=== PATIENT | female | born 2000 | race Caucasian/White ===

== ENCOUNTER 2025-03-28 20:36 | Emergency (ER) | payer SELFPAY ==
[2025-03-28 21:14] LABS: #Basophils 0.1 thou/uL (0.0-0.2); #Eosinophils 0.2 thou/uL (0.0-0.7); #Lymphocytes 2.0 thou/uL (1.20-3.40); #Monocytes 0.4 thou/uL (0.11-0.59); #Neutrophils 5.6 thou/uL (1.40-6.50); %Basophils 0.9 % (0.0-1.0); %Eosinophils 1.9 % (0.0-10.0); %Lymphocytes 24.6 % (21.0-51.0); %Monocytes 5.0 % (0.0-10.0); %Neutrophils 67.6 % (42.0-75.0); Hematocrit 44.3 % (36.0-47.0); Hemoglobin 14.2 g/dL (12.0-16.0); Mean Corpuscular Hemoglobin 29.3 pg (27.0-31.0); Mean Corpuscular Volume 91.6 fl (78.0-98.0); Platelet Count 194 10x3/uL (130-400); Red Blood Cell (RBC) Count 4.83 mill/uL (4.20-5.40); White Blood Cell (WBC) Count 8.3 10x3/uL (4.8-10.8)
[2025-03-28] MEDS ORDERED: diphenhydrAMINE 50 MG/ML VIAL ONE (21:15)
[2025-03-28] MEDS ORDERED: Famotidine/PF 20 mg/2ml Vial ONE (21:16)
[2025-03-28 21:33] LABS: ALT (SGPT) 12 U/L (Less than 34); AST (SGOT) 21 U/L (11-34); Albumin 4.5 g/dL (3.1-4.5); Alkaline Phosphatase 80 U/L (40-110); Anion Gap 16 mmol/L (10-20); BUN (Urea Nitrogen) 13 mg/dL (7.0-18.7); Bilirubin, Total 0.3 mg/dL (0.3-1.2); Calc. Creatinine Clearance 0 mL/min (70-130); Calcium 9.3 mg/dL (7.8-10.44); Carbon Dioxide 23 mmol/L (22-29); Chloride 106 mmol/L (98-107); Globulin 3.3 g/dL (2.4-3.5); Glucose 92 mg/dL (70-105); Potassium 4.0 mmol/L (3.5-5.1); Sodium 141 mmol/L (136-145)
[2025-03-28 21:34] LABS: Troponin I 0.011 ng/mL (< 0.028)
== END 2025-03-28 22:44 | disposition home or self-care (01) ==
LOC: BURERS 20:36
DX: T78.40XA Allergy, unspecified, initial encounter (principal)
CPT/HCPCS: 71045; 80053; 83880; 84484; 85025; 93005; 96374; 96375; J1200; J1308; J2919

== ENCOUNTER 2025-04-03 12:31 | Emergency (ER) | payer SELFPAY ==
[2025-04-03] MEDS ORDERED: Dicyclomine 20 MG TAB ONE (13:02)
[2025-04-03] MEDS ORDERED: Ondansetron PF 4 MG/2 ML Vial ONE (13:02)
[2025-04-03 13:03] LABS: #Basophils 0.1 thou/uL (0.0-0.2); #Eosinophils 0.2 thou/uL (0.0-0.7); #Lymphocytes 2.7 thou/uL (1.20-3.40); #Monocytes 0.5 thou/uL (0.11-0.59); #Neutrophils 6.4 thou/uL (1.40-6.50); %Basophils 1.2 % (0.0-1.0); %Eosinophils 2.2 % (0.0-10.0); %Lymphocytes 27.2 % (21.0-51.0); %Monocytes 4.6 % (0.0-10.0); %Neutrophils 64.8 % (42.0-75.0); Hematocrit 45.9 % (36.0-47.0); Hemoglobin 14.8 g/dL (12.0-16.0); Mean Corpuscular Hemoglobin 29.1 pg (27.0-31.0); Mean Corpuscular Volume 90.0 fl (78.0-98.0); Platelet Count 223 10x3/uL (130-400); Red Blood Cell (RBC) Count 5.10 mill/uL (4.20-5.40); White Blood Cell (WBC) Count 9.8 10x3/uL (4.8-10.8)
[2025-04-03 13:08] LABS: Glucose, Urine (Dipstick) Negative (Negative); Leukocyte Small (Negative); Protein, Urine (Dipstick) Trace mg/dL (Neg-Trace); Specific Gravity, Urine 1.020 (1.005-1.030)
[2025-04-03 13:16] LABS: Bacteria/HPF Rare-Few HPF (None Seen); CAUTI Indications for Culture Dysuria,urgency,freq; Pregnancy Test - Urine (BHCG) Negative (Negative); Pregu Control Background? CLEAR/WHITE (CLR/WHITE); Pregu Control Bar Appear? YES (CONTROL BAR); RBC/HPF 0-3 HPF (0-3)
[2025-04-03 13:17] LABS: Urine Culture Reflex No No
[2025-04-03 13:18] LABS: ALT (SGPT) 14 U/L (Less than 34); AST (SGOT) 17 U/L (11-34); Albumin 4.0 g/dL (3.1-4.5); Alkaline Phosphatase 73 U/L (40-110); Anion Gap 13 mmol/L (10-20); BUN (Urea Nitrogen) 13 mg/dL (7.0-18.7); Bilirubin, Total 0.5 mg/dL (0.3-1.2); Calc. Creatinine Clearance 0 mL/min (70-130); Calcium 8.9 mg/dL (7.8-10.44); Carbon Dioxide 24 mmol/L (22-29); Chloride 107 mmol/L (98-107); Globulin 3.0 g/dL (2.4-3.5); Glucose 101 mg/dL (70-105); Potassium 3.9 mmol/L (3.5-5.1); Sodium 140 mmol/L (136-145)
== END 2025-04-03 14:02 | disposition home or self-care (01) ==
LOC: BURERS 12:31
DX: R10.9 Unspecified abdominal pain (principal)
CPT/HCPCS: 80053; 81001; 81025; 85025; 96361; 96374; J2405